=== PATIENT | female | born 1965 | race Hispanic/Latino ===

== ENCOUNTER 2016-11-17 08:54 | Emergency (ER) | payer SELFPAY ==
[~2016-11-17] VITALS: Ht 157.5 cm; Wt 129.6 kg
[2016-11-17 09:09] VITALS: BP 161/81; PULSE 72; RESP 18; O2SAT 96
--- NOTE | 2016-11-17 10:12 | ED.REPORT ---
HPI-General Illness Date of Service November 17, 2016 ED Provider: Lior Fields DO 51 year old female with a history of diabetes and HTN presents to the ER accompanied by her daughter complaining of two weeks of right low back pain. Associated symptoms include dysuria, urinary hesitancy, hematuria, nausea, and headache. Patient denies diarrhea and vomiting. She does not voice any further medical complaints at this time. Nursing Notes Stated Complaint: BODY PAIN Chief Complaint: Back Pain or Injury Nursing Notes Reviewed: Yes Allergies: Coded Allergies: No Known Allergies (Verified , 10/31/06) Scheduled Insulin Aspart (NovoLOG U100 Insulin Vial) 100 Unit/Ml Mdv 5 UNIT SUBQ with meals Insulin Glargine (Lantus U100 Insulin Vial) 100 Unit/Ml Vial 10 UNIT SUBQ HS Sulfamethoxazole/Trimeth 800-160 mg (Bactrim DS) 1 Each Tablet 1 TABLET PO BID General Time Seen by MD: 10:11 Chief Complaint Back pain Hx Obtained From: Patient Arrived By: Walk-in Sudden in Onset?: No Onset Occurred: 1 week ago Symptom Duration: Since onset Location: : Back Quality: Painful Severity: Current: Moderate Severity: Maximum: Moderate Associated with: Reports: Headache, Nausea, Denies: Vomiting Additional Notes: Dysuria Urinary hesitancy Pertinent Negative: Pt denies other symptoms Similar Sx Previous: No Past Medical History Past Medical History Reports: Diabetes mellitus, Hypertension Past Surgical History Reports: (x3) Smoking History Never Smoker Social History Alcohol Use: Denies alcohol use Drug Use: Denies drug use Other Social History: Good social support Ambulatory Status Independent Review of Systems +Urinary Hesitancy Full Review of Systems GI: Reports: Nausea, Denies: Constipation, Diarrhea, Vomiting Female: Reports: Dysuria, Denies: Hematuria Musculoskeletal: Reports: Back pain Neurologic: Reports: Headache Complete sys rev & neg: except as marked. Physical Exam Vital Signs Vital Signs Date Time Temp Pulse Resp B/P Pulse Ox O2 Delivery O2 Flow Rate FiO2 11/17/16 13:15 89 20 132/70 99 Room Air 11/17/16 11:52 36.5 70 16 120/68 100 Room Air 11/17/16 09:09 36.2 72 18 161/81 96 Initial VS: Reviewed Head / Eyes: Atraumatic, Normocephalic, PERRL Neck: Supple, Non-tender, Full range of motion Extremities: Vascular intact, Neuro intact, No swelling, No tenderness Skin: Warm, Dry, No cyanosis Neurologic: Alert, Oriented, Nonfocal Psychiatric: Mood/affect normal, Behavior normal, Normal thought content General/Constitutional: Awake, Alert, Well developed Distress / Hydration: Positive: Distress mild Appearance / Presentation: Positive: Obese ENT: Airway patent, Mucous membranes moist Scarring on TM's. Respiratory / Chest: Breath sounds NL, No respiratory distress, No rales, No rhonchi, No wheezing Cardiovascular: Heart rate NL, Regular rhythm, Heart sounds NL, Cap refill not delayed, Peripheral circulation NL Abdomen: Soft, Non-tender, No guarding, No rebound, No distention Back: Full range of motion, No midline vertebral tend Bilateral CVA tenderness Interpretation & Diagnostics Lab Results Interpretation Result Diagram: 11/17/16 1015 11/17/16 1015 Test 11/17/16 10:10 11/17/16 10:15 Urine Color Yellow (YELLOW) Urine Appearance Clear (CLEAR,HAZY) Urine pH 5.5 (5.0-8.0) Urine Specific [place] 1.025 (1.003-1.035) Urine Protein Negativemg/dL (NEG,TRACE) Urine Glucose (UA) 500mg/dL (NEGATIVE) Urine Ketones Negativemg/dL (NEGATIVE) Urine Occult Blood Negative (NEGATIVE) Urine Nitrite Negative (NEGATIVE) Urine Bilirubin Negative (NEGATIVE) Urine Urobilinogen 4.0mg/dL (NORMAL) Urine Leukocyte Esterase Negative (NEGATIVE) Urine RBC 0-2/hpf (0-2) Urine WBC 0-5/hpf (0-5) Urine Epithelial Cells Occasional/hpf (NONE-MOD) Urine Crystals None seen (NONE SEEN) Urine Bacteria None/hpf (NONE-FEW) Urine Hyaline Casts None/lpf (NONE) Urine Granular Casts None seen (NONE SEEN) Urine Waxy Casts None seen (NONE SEEN) Urine Red Blood Cell Casts None seen (NONE SEEN) Urine White Blood Cell Casts None seen (NONE SEEN) Urine Mucus None seen (None Seen) Urine Trichomonas None seen (NONE SEEN) Urine Yeast Few (NONE SEEN) Urinalysis Comment None Urine Culture Reflexed Not indicated Hold Urine Received (Received) White Blood Count 4.9th/mm3 (3.8-10.1) Red Blood Count 4.60mil/mm3 (3.90-5.20) Hemoglobin 13.5g/dL (12.0-15.6) Hematocrit 40.0% (35.0-46.0) Mean Corpuscular Volume 87.0fL (81-100) Mean Corpuscular Hemoglobin 29.3pg (27.0-35.0) Mean Corpuscular Hemoglobin Concent 33.8% (32.0-37.0) Red Cell Distribution Width 12.8% (12.3-15.4) Platelet Count 178bil/L (150-400) Neutrophils (%) (Auto) 60.1% (40-74) Lymphocytes (%) (Auto) 26.2% (14-46) Monocytes (%) (Auto) 10.3% (4-12) Eosinophils (%) (Auto) 2.4% (0-5) Basophils (%) (Auto) 0.8% (0-3) Sodium Level 135mEq/L (134-144) Potassium Level 4.3mEq/L (3.5-5.2) Chloride Level 99mEq/L (97-108) Carbon Dioxide Level 23mmol/L (18-29) Blood Urea Nitrogen 12mg/dL (6-24) Creatinine < 0.30mg/dL (0.57-1.00) Estimat Glomerular Filtration Rate 337mL/min (>59) Glucose Level 263mg/dL (60-99) Lactic Acid Level 0.9mmol/L (0.4-2.0) Calcium Level 9.1mg/dL (8.5-10.1) Magnesium Level 1.7mg/dL (1.6-2.6) Total Bilirubin 0.9mg/dL (0.0-1.2) Aspartate Amino Transf (AST/SGOT) 60U/L (0-50) Alanine Aminotransferase (ALT/SGPT) 29U/L (0-32) Alkaline Phosphatase 144U/L (25-150) Total Protein 7.7g/dL (6.4-8.4) Albumin 3.3g/dL (3.4-5.0) Lipase 27U/L (13-60) CT Abd / Pelvis Interpretation IMPRESSION: 1. Heterogeneity of the right kidney without a definite mass lesion or hydronephrosis is most suspicious for pyelonephritis and clinical correlation is recommended. A subtle renal cyst cannot be excluded. A followup dedicated CT or MR renogram is recommended when the patient's acute symptoms have resolved to exclude underlying mass. 2. No renal or ureteral calculi. 3. Heterogeneity of the liver with surface nodularity is suggestive of hepatic cirrhosis and clinical correlation is recommended. No ascites. 4. Small fat containing periumbilical hernia. Dictated by: Teofilo Garcia M.D. on 11/17/2016 at 10:37 Approved by: Teofilo Garcia M.D. on 11/17/2016 at 10:44 Study type: Abdominal CT IV contrast Interpretation / Wet Read by: Interpret - Radiologist Re-Eval/Medical Decision Med Decision/Clinical Course CT is concerning for possible Godo urinalysis was not very remarkable. Additionally the patient has hyperglycemia. Initially she had stated that she takes 100 units of Lantus twice a day and 20 units of NovoLog with meals however after further questioning it seems that she does not have a prescriber she has not been formally dosed. In that she is not taking this on any regular basis. Back that is a rather large dose for a patient to begin regular insulin therapy for so she has been placed on 10 units of Lantus and 5 units of NovoLog with meals. She is prescribed Bactrim for her suspected pyelonephritis. Overall there is no evidence of sepsis or shock. I doubt etiology such as spinal abscess that she has no midline pain and there is another likely alternative cause. She will be discharged. Return and follow-up precautions given. Source of Hx: Old records Time of Eval: 11:37 Re-Evaluation/Progress Note: Patient reports that her pain has improved. She is resting comfortably. Time of Eval: 13:07 Re-Evaluation/Progress Note: Discussed physical lab and imaging results and plan to discharge. Patient is amenable to the plan. Return precautions given. All other questions addressed. Counseled Regarding: Diagnosis, Lab results, Need for follow-up, When/why to return to ED Discharge & Departure Primary Impression: Pyelonephritis Additional Impression: Diabetes mellitus Disposition: Home Discharge Condition All VS Reviewed: Yes Condition: Stable Patient Instructions: Kidney Infection (DC) Additional Instructions: Take Bactrim to treat your Urinary tract infection. Continue your Lantus and NovoLog. Use Tylenol for pain. Return to the ER if you develop high fever, persistent vomiting, severe pain, or other concerns. [place] Bactrim para tratar mejia infeccion de la orina. Continue mejia Lantus y NovoLog. Utilize Tylenol para mejia dolor. Regrese a la [facility] si desarroya calentura, vomito persistente, dolor queenie o tiene otras preocupaciones. fc-electric motor mechanic Referrals: [facility] (PCP) [facility] Scribe Attestation Portions of this note were transcribed by Jaylon Rai. I, Dr. Fields, personally performed the history, physical exam and medical decision-making; I reviewed and confirmed the accuracy of the information in the transcribed note. Signed by: Amos Olivares, 11/17/2016 and 13:26 copies to: [facility]; [facility] Lior Fields DO November 17, 2016 10:12 JAYLON RAI November 17, 2016 10:20
[2016-11-17 10:27] LABS: BASOPHILS % (AUTO) 0.8 % (0-3); EOSINOPHILS % (AUTO) 2.4 % (0-5); MONOCYTES % (AUTO) 10.3 % (4-12); Mean Corpuscular Hemoglobin 29.3 pg (27.0-35.0); NEUTROPHILS % (AUTO) 60.1 % (40-74); Platelet Count 178 bil/L (150-400)
[2016-11-17] MEDS ORDERED: 0.9% Sodium Chloride 1,000 ML IV ONE (10:28)
[2016-11-17] MEDS ORDERED: Ketorolac 15 mg/mL Inj IVPUSH ONE (10:30)
[2016-11-17] MEDS ORDERED: Ondansetron 2 mg/mL 2 mL Inj IVPUSH PRN (10:30)
[2016-11-17 10:44] LABS: APPEARANCE,URINE CLEAR (CLEAR,HAZY); COLOR,URINE YELLOW (YELLOW); OCCULT BLOOD,URINE NEGATIVE (NEGATIVE); PH,URINE 5.5 (5.0-8.0); YEAST,URINE FEW (NONE SEEN)
[2016-11-17 10:50] LABS: Lipase 27 U/L (13-60); Magnesium 1.7 mg/dL (1.6-2.6)
--- NOTE | 2016-11-17 11:45 | DRSVH ---
PROCEDURE: CT ABDOMEN AND PELVIS WITH CONTRAST ([id number]) INDICATIONS: bilateral flank pain, dysuria, IDDM TECHNIQUE: After the administration of intravenous contrast, 5 mm thick sections acquired from the diaphragm to the symphysis. 5 mm coronal and sagittal reformats were acquired. For radiation dose reduction, the following was used: automated exposure control, adjustment of mA and/or kV according to patient siz e. COMPARISON: None. FINDINGS: Image quality: Diagnostic. ABDOMEN: Lung bases: Lung bases are clear. Heart size is normal. Solid organs: The liver is moderately heterogeneous and demonstrates mild surface nodularity. A sing le calcified granuloma within the left hepatic lobe is noted. No focal liver lesions are appreciated . The gallbladder is borderline prominent in size. The spleen, adrenals, and pancreas are within no rmal limits. There is heterogeneous enhancement with multifocal non-masslike areas of low attenuatio n within the right kidney (image 30, series 2). No definite perinephric edema is evident. There is no hydronephrosis. The ureters are normal in course and caliber without renal calculi or ureteral ca lculi evident. Peritoneum and bowel: The stomach, duodenum, and remainder of the small bowel loops are nondilated. There is no bowel obstruction. Moderate residual stool is seen within the colon. No free fluid, loc ulated fluid collection or free air is seen within the abdomen. The appendix is well-visualized and normal. A moderate-sized periumbilical fat containing ventral hernia is noted. Nodes and vessels: No retroperitoneal or mesenteric adenopathy by size criteria. Aorta and inferior vena cava are normal in size. Bones: Multilevel degenerative changes of the spine are present. The central canal appears to be con genitally small. PELVIS: Genitourinary: Bladder wall thickness is normal. No bladder calculi are evident. The uterus and le ft ovary are not enlarged. The right ovary is not definitely seen and may be surgically absent. The distal ureters are nondilated. Miscellaneous: No inguinal hernias or adenopathy. No free fluid or loculated fluid collection is se en. Bones: No suspicious bony lesions. No acute pelvic fractures are evident. There are moderate degen erative changes of the sacroiliac joints and mild degenerative changes of the bilateral hips. IMPRESSION: 1. Heterogeneity of the right kidney without a definite mass lesion or hydronephrosis is most suspic ious for pyelonephritis and clinical correlation is recommended. A subtle renal cyst cannot be exclu ded. A followup dedicated CT or MR renogram is recommended when the patient's acute symptoms have res olved to exclude underlying mass. 2. No renal or ureteral calculi. 3. Heterogeneity of the liver with surface nodularity is suggestive of hepatic cirrhosis and clinica l correlation is recommended. No ascites. 4. Small fat containing periumbilical hernia. Dictated by: Teofilo Garcia M.D. on 11/17/2016 at 10:37 Approved by: Teofilo Garcia M.D. on 11/17/2016 at 10:44
[2016-11-17 11:52] VITALS: BP 120/68; PULSE 70; RESP 16; O2SAT 100
[2016-11-17] MEDS ORDERED: cefTRIAXone Inj 2,000 MG in Dextrose 5% Minibag Plus 50 ML IV ONE (12:10)
[2016-11-17] MEDS ORDERED: NOV100I SUBQ (12:47)
[2016-11-17] MEDS ORDERED: INSU100V7 SUBQ (12:47)
[2016-11-17] MEDS ORDERED: SULF1TAB7 PO (12:47)
[2016-11-17 13:15] VITALS: BP 132/70; PULSE 89; RESP 20; O2SAT 99
== END 2016-11-17 12:52 | disposition home or self-care (01) ==
LOC: SED 08:54
DX: N12 Tubulo-interstitial nephritis, not specified as acute or chronic (principal); E11.9 Type 2 diabetes mellitus without complications; R11.0 Nausea; R51 Headache; I10 Essential (primary) hypertension; Z79.4 Long term (current) use of insulin
CPT/HCPCS: 36415; 74177; 80053; 81000; 82948; 83605; 83690; 83735; 85025; 87086; 87088; 96361; 96365; 96375; 99285; J0696; J1885; J2405; J7030; Q9967